=== PATIENT | male | born 1980 | race Caucasian/White ===

== ENCOUNTER 2018-05-01 10:18 | Inpatient (IN) ==
--- NOTE | 2018-05-01 10:39 | Emergency Department Note ---
Disposition Clinical Impression: Cellulitis of both lower extremities Disposition: Admitted As Inpatient Condition: Good Time of Disposition: 11:59 Extremity Problem HPI - General Chief complaint: ED Extremity Problem,Nontraumatic Stated complaint: Swollen legs Time Seen by Provider: 05/01/18 10:25 Source: patient Mode of arrival: ambulatory Limitations: no limitations Nursing Notes Reviewed: Yes Vital Signs Reviewed: Yes - History of Present Illness HPI Narrative: Patient is a 37-year-old male with past medical history of hypertension. He presents today due to concern for cellulitis of the lower extremities. Patient states that this is been going on for a few weeks. He noticed some redness and swelling that started first on the right lower showed a analysis on the left lower extremities well. He notes that they are hot, swollen, redness is slowly extending up his legs. He denies any known initial injuries or cuts of the lower extremities, denies ulcers, denies hx of diabetes.. Denies any history of any DVTs, has not had an ultrasound in the past. He said that he was on 2 rounds of Bactrim and did have improvement in his redness. However, the redness eventually came back. He saw his primary care physician within the past week and was on Keflex, finished this dose regimen about one week ago. He states that the redness is still worsening despite being on antibiotic. Denies any other fevers, nausea, vomiting, abdominal pain, chest pain, shortness of breath, dysuria, hematuria. He also notes induration and redness that has began under his lower abdomen/pannus. Pain Scale: 7 - Related Data Allergies Allergy/AdvReac Type Severity Reaction Status Date / Time Penicillins Allergy See Verified 09/01/16 16:01 Comments All systems ED: reviewed and negative except as stated. Constitutional: Denies: fever Cardiovascular: Denies: chest pain Respiratory: Denies: dyspnea Gastrointestinal: Denies: abdominal pain, nausea, vomiting, diarrhea Genitourinary: Denies: urgency, dysuria Integumentary: Reports: rash Neurological: Denies: headache, weakness, numbness, paresthesias Past Medical History - Past Medical History Attestation: Yes The following information was validated with the patient. Source: patient Medical history: Reports: GERD, hypertension, kidney stones Psychiatric history: Reports: anxiety, depression, prior suicide attempt - Social History Smoking Status: Current every day smoker Smokeless Tobacco Status: No Alcohol use: Reports: occasionally Drug use: Reports: cocaine, marijuana, prescription drug abuse, other Physical Exam - General Limitations: no limitations General appearance: alert, in no apparent distress - Head Head exam: atraumatic, normocephalic, normal inspection - Eye Eye exam: Present: normal appearance, PERRL, EOMI - ENT ENT exam: normal exam, normal oropharynx, mucous membranes moist - Neck Neck exam: Present: normal inspection, full ROM, trachea midline - Chest Chest inspection: Present: normal inspection, symmetric chest wall rise - Respiratory Respiratory exam: Present: normal lung sounds bilaterally - Cardiovascular Cardiovascular exam: Present: regular rate, normal rhythm, normal heart sounds - Abdominal Exam Abdominal exam: Present: other (induration of the lower abdomen with mild erythema). Absent: tenderness, distention, guarding, rebound, rigidity - Neurological Exam Neurological exam: Present: alert, oriented X3 - Psychiatric Psychiatric exam: Present: normal affect, normal mood Course Course Narrative: Patient is tachycardic. Otherwise, the rest of vitals within normal limits. Physical exam shows significant erythema of bilateral lower extremities and swelling of bilateral lower extremities, both worse on the right. Legs are both tender to palpation. Redness extends up to above bilateral knees. He also has some mild induration and mild erythema of the lower abdomen. Patient has been on 3 rounds of antibiotics within the past few weeks, recently finished Keflex 1 week ago. States that the redness is not improving. We will obtain CBC, BMP, will also give 1 L normal saline bolus, will give vanc and clinda for staph and strep coverage. Will also obtain US of bilateral LE to assess for DVT. 11:52 white blood cell count of 8.0. Otherwise, no other major concerning labs. DVT ultrasound of the bilateral lower extremities were negative. Bedside ultrasound performed and showed cobblestoning of bilateral lower extremities consistent with cellulitis. We will proceed with admission at this time but felt outpatient treatment of cellulitis of lower extremities. Vital Signs Temperature 98.0 F 05/01/18 10:20 Pulse Rate 110 05/01/18 10:20 Respiratory Rate 18 05/01/18 10:20 Blood Pressure 145/99 05/01/18 10:20 O2 Sat by Pulse Oximetry 98 05/01/18 10:20 Temperature 98.0 F 05/01/18 10:20 Pulse Rate 110 05/01/18 10:20 Respiratory Rate 18 05/01/18 10:20 Blood Pressure 145/99 05/01/18 10:20 O2 Sat by Pulse Oximetry 98 05/01/18 10:20 Oxygen Delivery Oxygen Delivery Room Air Extremity Problem, Nontraumati - [facility] Narrative Medical decision making narrative: Patient is tachycardic. Otherwise, the rest of vitals within normal limits. Physical exam shows significant erythema of bilateral lower extremities and swelling of bilateral lower extremities, both worse on the right. Legs are both tender to palpation. Redness extends up to above bilateral knees. He also has some mild induration and mild erythema of the lower abdomen. Patient has been on 3 rounds of antibiotics within the past few weeks, recently finished Keflex 1 week ago. States that the redness is not improving. We will obtain CBC, BMP, will also give 1 L normal saline bolus, will give vanc and clinda for staph and strep coverage. Will also obtain US of bilateral LE to assess for DVT. 11:52 white blood cell count of 8.0. Otherwise, no other major concerning labs. DVT ultrasound of the bilateral lower extremities were negative. Bedside ultrasound performed and showed cobblestoning of bilateral lower extremities consistent with cellulitis. We will proceed with admission at this time but felt outpatient treatment of cellulitis of lower extremities. - Medical Records Medical records reviewed: Yes I reviewed the patient's medical records. - Lab Data Lab results reviewed: Yes I reviewed the patient's lab results. Result diagrams: 05/01/18 10:56 05/01/18 10:41 Lab Results 05/01/18 05/01/18 Range/Units 10:41 10:56 WBC 8.0 (4.3-11.1) K/mcL RBC 4.54 (4.19-5.50) M/mcL Hgb 12.8 L (12.9-16.9) g/dL Hct 39.0 (37.5-50.1) % MCV 85.9 (83.0-100.0) fL MCH 28.2 (28.0-33.3) pg MCHC 32.8 (31.6-35.5) g/dL RDW 13.6 (11.5-14.5) % Plt Count 245 (140-400) K/mcL MPV 9.1 L (9.4-12.4) fL Immature Gran % 0.4 (0-4) % Seg Neutrophils % 67.9 % Lymphocytes % 14.6 % Monocytes % 12.5 % Eosinophils % 3.8 % Basophils % 0.8 % Neutrophils # 5.4 (1.6-8.9) K/mcL Lymphocytes # 1.2 (0.6-4.6) K/mcL Monocytes # 1.0 (0.0-1.3) K/mcL Eosinophils # 0.3 (0.0-0.6) K/mcL Basophils # 0.1 (0.0-0.2) K/mcL Sodium 138 (136-145) mEq/L Potassium 4.1 (3.5-5.1) mEq/L Chloride 105 (98-107) mEq/L Carbon Dioxide 28 (23-29) mEq/L BUN 14 (6-20) mg/dL Creatinine 0.65 L (0.70-1.30) mg/dL Est GFR ( Amer) > 60 (> 60) Est GFR (Non-Af Amer) > 60 (> 60) BUN/Creatinine Ratio 22 (6-26) Glucose 110 H (70-105) mg/dL Calculated Osmolality 287 (280-300) Calcium 8.8 (8.6-10.3) mg/dL - Radiology Data Radiology results reviewed: Yes I reviewed the patient's radiology results. S.B.A.R. - S.B.A.R. Situation: Demographics, MOA Background: Presenting Complaint, Relevant PMH, Meds, & Allergies Assessment: Vital Signs, Course and respsone to treatment, Exam Concerns, Patient/Family Expectation, Pertinant Lab Results Recommendation: Barrier(s) to disposition, Recommendation based on pending studi es, treatments, or consults S.B.A.R. Report Given to: Dr. Macdonald
[2018-05-01] MEDS ORDERED: 0.9 % Sodium Chloride 1,000 ML IVC ONE (10:41)
[2018-05-01] MEDS ORDERED: Clindamycin 600 MG/50 ML 600 MG/50 ML IV.SOLN IVPB ONE (10:59)
--- NOTE | 2018-05-01 11:01 | Emergency Department Note ---
Disposition Clinical Impression: Cellulitis of both lower extremities Disposition: Admitted As Inpatient Condition: Good General Adult HPI - General Chief complaint: ED Extremity Problem,Nontraumatic Stated complaint: Swollen legs Time Seen by Provider: 05/01/18 10:25 Source: patient Mode of arrival: ambulatory Limitations: no limitations Nursing Notes Reviewed: Yes Vital Signs Reviewed: Yes - History of Present Illness Pain Scale: 7 - Related Data Allergies Allergy/AdvReac Type Severity Reaction Status Date / Time Penicillins Allergy See Verified 09/01/16 16:01 Comments Constitutional: Denies: fever Cardiovascular: Denies: chest pain Respiratory: Denies: dyspnea Gastrointestinal: Denies: abdominal pain, nausea, vomiting, diarrhea Genitourinary: Denies: urgency, dysuria Integumentary: Reports: rash Neurological: Denies: headache, weakness, numbness, paresthesias Past Medical History - Past Medical History Medical history: Reports: GERD, hypertension, kidney stones Psychiatric history: Reports: anxiety, depression, prior suicide attempt - Social History Smoking Status: Current every day smoker Smokeless Tobacco Status: No Alcohol use: Reports: occasionally Drug use: Reports: cocaine, marijuana, prescription drug abuse, other Physical Exam - General Limitations: no limitations General appearance: alert, in no apparent distress Course Vital Signs Temperature 98.0 F 05/01/18 10:20 Pulse Rate 110 05/01/18 10:20 Respiratory Rate 18 05/01/18 10:20 Blood Pressure 145/99 05/01/18 10:20 O2 Sat by Pulse Oximetry 98 05/01/18 10:20 Temperature 98.4 F 05/01/18 12:34 Pulse Rate 73 05/01/18 12:34 Respiratory Rate 18 05/01/18 12:34 Blood Pressure 126/65 05/01/18 12:34 O2 Sat by Pulse Oximetry 98 05/01/18 12:34 Oxygen Delivery Oxygen Delivery Room Air Medical Decision Making - Lab Data Result diagrams: 05/01/18 10:56 05/01/18 10:41 Lab Results 05/01/18 05/01/18 05/01/18 Range/Units 10:41 10:56 12:26 WBC 8.0 (4.3-11.1) K/mcL RBC 4.54 (4.19-5.50) M/mcL Hgb 12.8 L (12.9-16.9) g/dL Hct 39.0 (37.5-50.1) % MCV 85.9 (83.0-100.0) fL MCH 28.2 (28.0-33.3) pg MCHC 32.8 (31.6-35.5) g/dL RDW 13.6 (11.5-14.5) % Plt Count 245 (140-400) K/mcL MPV 9.1 L (9.4-12.4) fL Immature Gran % 0.4 (0-4) % Seg Neutrophils % 67.9 % Lymphocytes % 14.6 % Monocytes % 12.5 % Eosinophils % 3.8 % Basophils % 0.8 % Neutrophils # 5.4 (1.6-8.9) K/mcL Lymphocytes # 1.2 (0.6-4.6) K/mcL Monocytes # 1.0 (0.0-1.3) K/mcL Eosinophils # 0.3 (0.0-0.6) K/mcL Basophils # 0.1 (0.0-0.2) K/mcL Sodium 138 (136-145) mEq/L Potassium 4.1 (3.5-5.1) mEq/L Chloride 105 (98-107) mEq/L Carbon Dioxide 28 (23-29) mEq/L BUN 14 (6-20) mg/dL Creatinine 0.65 L (0.70-1.30) mg/dL Est GFR ( Amer) > 60 (> 60) Est GFR (Non-Af Amer) > 60 (> 60) BUN/Creatinine Ratio 22 (6-26) Glucose 110 H (70-105) mg/dL Calculated Osmolality 287 (280-300) Lactic Acid 0.5 (0.5-2.2) mmol/L Calcium 8.8 (8.6-10.3) mg/dL Creatine Kinase 67 (30-223) Units/L Attestation Statement - Attestation Attestation: I examined this patient and my medical decision-making was reviewed with the Resident Physician. I agree with the documented findings, disposition and treatment plan as described except to the extent set forth below. Patient presents to the emergency department with a chief complaint of leg redness. Patient has had problems with his legs for the past 2 months. They are swollen and painful. Red. He has taken a course of antibiotic with no improvement. He denies numbness but states they are tingly. He denies any history of diabetes. He denies stepping on any objects or trauma to his feet. On examination he has symmetric erythema and edema to the lower extremities. They are warm to the touch. Plan. Basic labs. IV antibiotics as he has failed outpatient Bactrim and Keflex. Will rule out DVTs. Patient will be admitted for failed outpatient treatment. Negative for DVT. Admitted for IV antibiotic.
[2018-05-01 11:18] LABS: Basophils # 0.1 K/mcL (0.0-0.2); Basophils % 0.8 %; Eosinophils # 0.3 K/mcL (0.0-0.6); Eosinophils % 3.8 %; Hemoglobin 12.8 g/dL (12.9-16.9); Immature Granulocytes % 0.4 % (0-4); Lymphocytes # 1.2 K/mcL (0.6-4.6); Lymphocytes % 14.6 %; Mean Corpuscular HGB Conc 32.8 g/dL (31.6-35.5); Mean Corpuscular Hemoglobin 28.2 pg (28.0-33.3); Mean Corpuscular Volume 85.9 fL (83.0-100.0); Mean Platelet Volume 9.1 fL (9.4-12.4); Monocytes % 12.5 %; Neutrophils # 5.4 K/mcL (1.6-8.9); Platelet Count 245 K/mcL (140-400); Red Blood Count 4.54 M/mcL (4.19-5.50); Red Cell Distribution Width 13.6 % (11.5-14.5); Segmented Neutrophils % 67.9 %
[2018-05-01 11:31] LABS: BUN/Creatinine Ratio 22 (6-26); Blood Urea Nitrogen 14 mg/dL (6-20); Calcium 8.8 mg/dL (8.6-10.3); Carbon Dioxide 28 mEq/L (23-29); Chloride 105 mEq/L (98-107); Glucose 110 mg/dL (70-105); Osmolality,Calculated 287 (280-300); Potassium 4.1 mEq/L (3.5-5.1); Sodium 138 mEq/L (136-145); eGFR For Non-African Americans > 60 (> 60)
--- NOTE | 2018-05-01 12:28 | Internal Med History&Physical ---
Date of Encounter: 05/01/18 Time of Encounter: 12:23 Internal Medicine - H&P: HPI Chief complaint: bilateral lower extremity swelling Admitted From: Home Plans for Post Hospital Care: Home History of present illness: Mr. Teresa is a 37 year old morbidly obese male with history of hypertension, depression and drug use disorder presented to the emergency department with complaint of bilateral lower extremity swelling and pain. As per patient his symptoms started 2 months ago with warmness and erythema and progressively it worsened and traveled up to his knees. In addition to warmness and erythema he developed worsening swelling of the bilateral lower extremities. He visited his primary care doctor and was prescribed Bactrim with minimal improvement of his symptoms. Last week he saw his primary care physician again and was prescribed Keflex and finish the course about 1 week ago however the symptoms continue to worsen. He cannot recall aggravating factors. He is frustrated as his legs are not improving despite being prescribed oral antibiotics. He reports that he has never had any history of DVTs or PE. He denies fever, chills, nausea, vomiting, diarrhea, applications, chest pain, shortness of breath, abdominal pian, N/V/D. Past Med Surg Social Fam HX - Past Medical History Medical history: GERD, hypertension, kidney stones Psychiatric history: anxiety, depression, prior suicide attempt - Past Surgical History Additional surgical history: Lithotripsy - Social History Smoking Status: Current every day smoker Smokeless Tobacco Status: No Alcohol use: occasionally Drug use: cocaine, marijuana, prescription drug abuse, other Internal Medicine - H&P: Meds Allergy/AdvReac Type Severity Reaction Status Date / Time Penicillins Allergy See Verified 09/01/16 16:01 Comments All Systems PM: A 10-system review of systems was performed and is negative for pertinent f indings except as documented above in the HPI. - Constitutional Vitals: Temp Pulse Resp BP Pulse Ox 98.0 F 110 18 145/99 98 05/01/18 10:20 05/01/18 10:20 05/01/18 10:20 05/01/18 10:20 05/01/18 10:20 Exam: General: Patient is alert, oriented, no acute distress, morbidly obese, eating Head: atraumatic, normocephalic, Eye: normal appearance, PERRL, no scleral icterus, no conjunctival injection ENT: mucous membranes moist, normal external ear exam Neck: normal inspection, trachea midline, full ROM, no carotid bruits Chest: normal inspection, symmetric chest rise Respiratory: Decreased breath sounds secondary to body habitus, Good respiratory effort. Bilateral breath sounds are clear without wheezing, crackles, or rhonchi. Cardiovascular: Distant heart sounds secondary to body habitus, Regular rate and rhythm. s1 and s2 No clicks, rubs, gallops, or murmors. Abdomen: Bowel sounds present normoactive x-4 quadrants. Abdomen is soft, nondistended. no Epigastric tenderness. No guarding or rebound. No o rganomegaly noted, obese musculoskeletal: Spontaneously moving all extremities. +3 edema of bilateral lower extremities below knee, erythema, warmth and weeping. Doppler pulses are intact, tender to touch Skin: warm, as above, bilateral feet have chronic skin changes Neuro: Alert and oriented x4. No focal deficit, Psych: Patient's affect is normal Internal Med - H&P Results - Labs CBC & Chem 7: 05/01/18 10:56 05/01/18 10:41 Labs: Short CBC 05/01/18 Range/Units 10:56 WBC 8.0 (4.3-11.1) K/mcL Hgb 12.8 L (12.9-16.9) g/dL Hct 39.0 (37.5-50.1) % Plt Count 245 (140-400) K/mcL Neutrophils # 5.4 (1.6-8.9) K/mcL BMP 05/01/18 10:41 Sodium 138 Potassium 4.1 Chloride 105 Carbon Dioxide 28 BUN 14 Creatinine 0.65 L Glucose 110 H Calcium 8.8 - Assessment and plan (1) Cellulitis of both lower extremities Current Visit: Yes Status: Acute Assessment and plan: bilateral lower extremity cellulitis up to the knee - failed OP treatment x 3 received vancomycin and clindamycin in the ED. CPK, lactic acid, ESR/CRP STAT continue with ceftriaxone, vancomycin ID consulted will follow recommendations CT of the bilateral lower extremities DVT study performed - as per ED physician it was negative - follow official report A1c in AM MRSA swab (2) Morbidly obese Current Visit: Yes Status: Acute Assessment and plan: BMI 48 nutrition consult (3) Depression Current Visit: Yes Status: Acute Assessment and plan: history of depression - continue home medications if not CI Qualifiers: Depression Type: unspecified Qualified Code(s): F32.9 - Major depressive disorder, single episode, unspecified (4) Current every day smoker Current Visit: Yes Status: Acute Assessment and plan: was counseled nicotine patch (5) Drug use disorder Current Visit: Yes Status: Acute Assessment and plan: Utox stat was counseled (6) DVT prophylaxis Current Visit: Yes Status: Acute Assessment and plan: heparin sc - Time Spent With Patient Total time spent is greater than 50% in coordination of care (as documented) at patient's floor/unit and/or counseling patient:
[2018-05-01 12:34] LABS: Creatine Kinase 67 Units/L (30-223)
[2018-05-01] MEDS ORDERED: Naloxone 0.4 MG/ML INJ IVP PRN (12:41)
[2018-05-01] MEDS ORDERED: Acetaminophen 325 MG TABLET PO PRN (12:41)
[2018-05-01 13:33] LABS: C-Reactive Protein 20 mg/L (Less than 10)
--- NOTE | 2018-05-01 13:35 | Infectious Disease Consult ---
Date of Encounter: 05/01/18 Time of Encounter: 13:28 Assessment and Plan (1) Cellulitis of both lower extremities Status: Acute Assessment and plan: Causative organism not clear. CT bilateral lower extremity prelim with no abscess or necrotizing fasciitis. Final report pending Patient allergic to penicillin states he has a rash when he was a baby Continue vancomycin and ceftriaxone for now Await blood cultures Await CT report Duration of treatment depends on clinical picture Goal vancomycin trough 10-15 Monitor left ventricular drug toxicity (2) Current every day smoker Status: Acute Assessment and plan: Patient smokes one pack a day Recommended nicotine patch (3) Depression Status: Acute Qualifiers: Depression Type: unspecified Qualified Code(s): F32.9 - Major depressive disorder, single episode, unspecified Infectious Disease HPI - Data of Consult Patient: new to practice Consult date: 05/01/18 Requesting Physician: Renae Adames MD Primary Care Provider: Cheli Maradiaga MD - Consult Narrative Reason for consult: cellulitis History of present illness: Mr. Teresa is a 37 year old male Patient is a 37-year-old gentleman who just presented to [facility] with bilateral lower extremity edema and erythema. We are consulted for cellulitis requiring IV antibiotics failed outpatient treatment. Patient is a 37-year-old gentleman who has intermittent hypertension currently not taking any medications. Who also has morbid obesity with a BMI of 49 who also has chronic pain syndrome and anxiety presented to see his PCP at the end of March for cellulitis. Patient was given Keflex 500 mg every 6 hours with no resolution or improvement of his symptoms. Patient tells me after that he took 2 courses of Bactrim which also did not improve his symptoms. Patient decided to come to the hospital for evaluation. Patient states that he felt that he was having fevers and chills. Patient states that his swelling on his legs has been going on for a few months that the erythema has been going on for a couple weeks. I think the patient is a poor historian because it does not coincide with the records we have from 03/31/2018. Since admission, patient has been afebrile, tachycardic. No tachypnea. Presenting labs revealed a WBC of 8000 with normal differential. BUN 14 creatinine 0.65. CK 67 and a CRP that is pending. Patient had bilateral lower extremity CT to rule out DVT or abscesses or necrotizing fasciitis. Official report is pending. On further questioning patient lives with his fiancee and his children. Patient has a total of 3 biological and 3 stepchildren. Patient also has 2 dogs at home. Patient tells me that he is self-employed. Lives in [place]. Patient does smoke a pack a day. Smokes pot every day. Does not drink alcohol. Patient denies any from a to his lower extremities. Denies any insect bite. De nies any bedbugs. Currently patient is sitting up at the edge of the bed. Denies any headache. No runny nose no sinus pressure no sore throat. No chest pain or shortness of breath. No nausea no vomiting no diarrhea no constipation no urinary symptoms. Patient does have bilateral lower extremity edema and erythema and warmth to touch suggestive of cellulitis. Patient also has very dry scaly skin on both sides that he states he has had for years. Poor hygiene might be playing a factor CC: Renae Adames MD Past Med Surg Social Fam HX - Past Medical History Medical history: GERD, hypertension, kidney stones Psychiatric history: anxiety, depression, prior suicide attempt - Past Surgical History Additional surgical history: Lithotripsy - Social History Smoking Status: Current every day smoker Smokeless Tobacco Status: No Alcohol use: occasionally Drug use: cocaine, marijuana, prescription drug abuse, other - Family History Father Hx Family Cardiac Disorders: Yes Mother Hx Family Cardiac Disorders: Yes Infectious Disease-CN:Meds Ranitidine HCl [Heartburn Relief] 150 mg PO BID 05/01/18 [History] Allergy/AdvReac Type Severity Reaction Status Date / Time Penicillins Allergy See Verified 05/02/18 09:38 Comments Review of systems: 10 point review of systems done, pertinent positives and negatives are mentioned in the history of present illness Exam - Constitutional Vitals: Temp Pulse Resp BP Pulse Ox 98.4 F 73 18 126/65 98 05/01/18 12:34 05/01/18 12:34 05/01/18 12:34 05/01/18 12:34 05/01/18 12:34 General appearance: cooperative, no febrile - Head Head exam: Present: atraumatic, normocephalic - Eye Eye exam: Present: EOMI, PERRL, sclera anicteric - ENT ENT exam: Present: mucous membranes moist Additional comments: No oral thrush - Neck Neck exam: Present: full ROM. Absent: meningismus - Respiratory Respiratory exam: Present: CTAB. Absent: wheezes - Cardiovascular Cardiovascular exam: Present: RRR, +S1, +S2 - GI/Abdominal GI/Abdominal exam: Present: normal bowel sounds, soft. Absent: tenderness - Extremities Exam Additional comments: Bilateral lower extremity edema, erythema and warmth to touch. No crepitus. No fluctuance. Patient does have scaly skin on the heels of both feet that he tells me he has had for a while - Neurological Exam Neurological exam: Present: alert, oriented X3 Infectious Disease CN: Results - Labs CBC & Chem 7: 05/02/18 03:10 05/02/18 03:10 Consult Discharge Plan - Plan Referrals: Cheli Maradiaga MD [Primary Care Provider] -
[2018-05-01] MEDS: *HR* HYDROcodone/Acet 5/325 mg TABLET PO PRN ×2 (13:40→20:38)
[2018-05-01] MEDS: cefTRIAXone 2,000 MG in Water for inj. (sterile) 20 ML 20 ML IVP SCH (16:15)
[2018-05-01] MEDS: *HR* Heparin 5,000 UNIT/ML VIAL SQ SCH ×2 (16:16→22:21)
[2018-05-01] MEDS: Famotidine 20 MG TABLET PO SCH (20:38)
[2018-05-01 22:06] LABS: Amphetamine Screen,Urine Negative ng/mL (Cutoff=1000); Barbiturate Screen,Urine Negative ng/mL (Cutoff=200); Benzodiazepines Screen,Urine Negative ng/mL (Cutoff=200); Cannabinoid Screen,Urine Positive ng/mL (Cutoff = 50); Cocaine Screen,Urine Positive ng/mL (Cutoff= 300); Opiate Screen,Urine Positive ng/mL (Cutoff=300); Phencyclidine Screen,Urine Negative ng/mL (Cutoff=25)
[2018-05-02 03:39] LABS: Basophils % 1.3 %; Eosinophils % 5.4 %; Hematocrit 38.8 % (37.5-50.1); Hemoglobin 12.4 g/dL (12.9-16.9); Immature Granulocytes % 0.6 % (0-4); Lymphocytes % 19.5 %; Mean Corpuscular Hemoglobin 27.7 pg (28.0-33.3); Mean Corpuscular Volume 86.6 fL (83.0-100.0); Mean Platelet Volume 9.1 fL (9.4-12.4); Monocytes % 11.8 %; Platelet Count 235 K/mcL (140-400); Red Blood Count 4.48 M/mcL (4.19-5.50); Red Cell Distribution Width 13.5 % (11.5-14.5); Segmented Neutrophils % 61.4 %
[2018-05-02 03:40] LABS: Basophils # 0.1 K/mcL (0.0-0.2); Eosinophils # 0.3 K/mcL (0.0-0.6); Lymphocytes # 1.2 K/mcL (0.6-4.6); Monocytes # 0.8 K/mcL (0.0-1.3); Neutrophils # 3.9 K/mcL (1.6-8.9)
[2018-05-02 03:58] LABS: BUN/Creatinine Ratio 17 (6-26); Blood Urea Nitrogen 13 mg/dL (6-20); Calcium 8.5 mg/dL (8.6-10.3); Carbon Dioxide 28 mEq/L (23-29); Chloride 108 mEq/L (98-107); Glucose 119 mg/dL (70-105); Osmolality,Calculated 283 (280-300); Potassium 4.1 mEq/L (3.5-5.1); Sodium 136 mEq/L (136-145); eGFR For Non-African Americans > 60 (> 60)
[2018-05-02 04:11] LABS: Thyroid Stimulating Hormone 1.419 mcIU/mL (0.340-5.600)
[2018-05-02 04:21] LABS: Estimated Average Glucose 126 mg/dl
[2018-05-02] MEDS: *HR* Heparin 5,000 UNIT/ML VIAL SQ SCH ×3 (05:14→21:23)
[2018-05-02] MEDS: *HR* HYDROcodone/Acet 5/325 mg TABLET PO PRN ×3 (05:14→19:48)
--- NOTE | 2018-05-02 07:57 | Internal Med Progress Note ---
Hospitalist Progress Note - Encounter Date of Encounter: 05/02/18 Time of Encounter: 07:54 - Subjective Interval History: Patient seen and examined this morning at bedside. No acute overnight events. Denies any fevers chills nausea and vomiting. Feeling slightly better. Pain slightly improved in his lower extremity. Denies any shortness of breath or chest pain. No bowel or urinary complaints. - Exam Vitals: Temp Pulse Resp BP Pulse Ox 98.0 F 82 16 137/80 100 05/02/18 03:05 05/02/18 03:05 05/02/18 03:05 05/02/18 03:05 05/02/18 03:05 Exam: General: In no acute distress. Conversant. Morbidly Obese. Respiratory exam: CTAB. no accessory muscle use, rales, rhonchi, wheezes Cardiovascular exam: RRR, +S1, +S2. no murmur, gallop, rubs. GI/Abdominal exam: Non-tender, Non-distended, normal bowel sounds, soft, no peritoneal signs. Extremities exam: full ROM, 3+ pedal edema. no calf tenderness Neurological exam: CN II-XII intact, AO X3, no focal deficits. no pronater dri ft, facial droop, speech deficit Skin exam: redness and warmth b/l LE below knee. could not inspect whole leg due to tight pants. Tenderess on Lt medial maleolus. - Assessment and Plan (1) Cellulitis of both lower extremities Current Visit: Yes Status: Acute (2) Morbidly obese Current Visit: Yes Status: Acute (3) DVT prophylaxis Current Visit: Yes Status: Acute (4) Depression Current Visit: Yes Status: Acute (5) Current every day smoker Current Visit: Yes Status: Acute (6) Drug use disorder Current Visit: Yes Status: Acute - Summary of Assessment and Plan Summary of Assessment and Plan: Cellulitis of both lower extremities - ongoing for 3-4 weeks - failed outpatient keflex and bactrim over past 3 weeks - elevated CRP and ESR - No bone involvement on CT - DVT study negative. follow official report - borderline A1c, MRSA negative - c/w Vancomycin and ceftriaxone. f/u Blood culture - ID following Chronic LE swelling - Not worked up before. On going for few months - Obtain ECHO given cocaine use for cardiomyopathy. Depression - Will start home medication when confirmed Current every day smoker and cocaine/marijuana abuse - c/w nicotine patch. Counselled on smoking cessation and drug abuse - last coccaine use 1 week ago. Opiate positive but denies use or use of pain medications - mentions not ready and does not want to see social insurance analyst DVT prophylaxis - heparin sc - Time Spent with Patient Total time spent is greater than 50% in coordination of care (as documented) at patient's floor/unit and/or counseling patient: Internal Medicine: Result - Labs CBC & Chem 7: 05/02/18 03:10 05/02/18 03:10 Labs: Short CBC 05/01/18 05/02/18 Range/Units 10:56 03:10 WBC 8.0 6.4 (4.3-11.1) K/mcL Hgb 12.8 L 12.4 L (12.9-16.9) g/dL Hct 39.0 38.8 (37.5-50.1) % Plt Count 245 235 (140-400) K/mcL Neutrophils # 5.4 3.9 (1.6-8.9) K/mcL BMP 05/01/18 05/02/18 10:41 03:10 Sodium 138 136 Potassium 4.1 4.1 Chloride 105 108 H Carbon Dioxide 28 28 BUN 14 13 Creatinine 0.65 L 0.77 Glucose 110 H 119 H Calcium 8.8 8.5 L - Impressions Impressions Lower Extremity CT 05/01/18 12:18 IMPRESSION: CT tibia/fibula: 1. Severe cellulitis of the left lower extremity. 2. No acute osseous abnormality or aggressive osseous destruction. 3. No focus of soft tissue gas identified. CT right lower extremity: 1. Severe cellulitis of the right lower extremity. 2. No acute osseous abnormality or aggressive osseous destruction. 3. No focus of soft tissue gas identified. D/ / 05/01/2018 13:52:40 Adonay Cedeno MD / jason Interpreting Provider: Adonay Cedeno MD Lower Extremity CT 05/01/18 12:18 IMPRESSION: CT tibia/fibula: 1. Severe cellulitis of the left lower extremity. 2. No acute osseous abnormality or aggressive osseous destruction. 3. No focus of soft tissue gas identified. CT right lower extremity: 1. Severe cellulitis of the right lower extremity. 2. No acute osseous abnormality or aggressive osseous destruction. 3. No focus of soft tissue gas identified. D/ / 05/01/2018 13:52:40 Adonay Cedeno MD / jason Interpreting Provider: Adonay Cedeno MD Consult Discharge Plan - Plan Referrals: Cheli Maradiaga MD [Primary Care Provider] - (4) Depression Qualifiers: Depression Type: unspecified Qualified Code(s): F32.9 - Major depressive disorder, single episode, unspecified
[2018-05-02] MEDS: Famotidine 20 MG TABLET PO SCH ×2 (08:33→19:48)
--- NOTE | 2018-05-02 09:20 | Infectious Disease Progress No ---
Date of Encounter: 05/02/18 Time of Encounter: 09:18 - Assessment and Plan (1) Cellulitis of both lower extremities Status: Acute Causative organism: Unclear. Location: Both lower extremities. Etiology: Unclear this is likely multifactorial. The patient has poor skin turgor to the bilateral lower extremities and there appears to be some dry scaly skin making him at high risk for skin compromise which could be the source. The patient is also morbidly obese and possibly has an element of vasculature abnormalities contributing to the swelling. CT of the BLE negative for abscess or OM. ESR and CRP mildly elevated, but not impressive. Recommendations: Aait blood cultures. Continue Vancomycin IV. Pharmacy to dose. Goal trough ~15. Continue Rocephin 2 grams IV daily. Duration of treatment depends on the clinical picture. Monitor renal function and for drug toxicity and dose-adjust antibiotics. (2) Morbidly obese Status: Acute (3) Depression Status: Acute Qualifiers: Depression Type: unspecified Qualified Code(s): F32.9 - Major depressive disorder, single episode, unspecified (4) Current every day smoker Status: Acute (5) Drug use disorder Status: Acute UDS positive for opiates, cocaine, and THC. Consider checking HIV and Hepatitis B and C serologies. - Subjective Interval history: Patient seen and examined. No acute events noted overnight. Patient states overall he feels about the same. Complains of some pain to the bilateral ankles. Denies any fevers or chills or rigors. Denies chest pain, shortness of breath, or cough. Denies nausea, vomiting, diarrhea, or constipation. Denies abdominal pain or urinary complaints. States his appetite is good and he had a bowel movement yesterday. He denies any oral thrush or new skin lesions. Infect Dis PN-Objective Data - Labs CBC & Chem 7: 05/02/18 03:10 05/03/18 02:36 Labs: Laboratory Results - last 24 hr 05/01/18 05/01/18 05/01/18 10:41 10:56 10:56 WBC 8.0 RBC 4.54 Hgb 12.8 L Hct 39.0 MCV 85.9 MCH 28.2 MCHC 32.8 RDW 13.6 Plt Count 245 MPV 9.1 L Immature Gran % 0.4 Seg Neutrophils % 67.9 Lymphocytes % 14.6 Monocytes % 12.5 Eosinophils % 3.8 Basophils % 0.8 Neutrophils # 5.4 Lymphocytes # 1.2 Monocytes # 1.0 Eosinophils # 0.3 Basophils # 0.1 ESR 43 H Sodium 138 Potassium 4.1 Chloride 105 Carbon Dioxide 28 BUN 14 Creatinine 0.65 L Est GFR ( Amer) > 60 Est GFR (Non-Af Amer) > 60 BUN/Creatinine Ratio 22 Glucose 110 H Est Mean Plasma Glucose Hemoglobin A1c Calculated Osmolality 287 Lactic Acid Calcium 8.8 Creatine Kinase 67 C-Reactive Protein 20 H TSH Nasal Screen MRSA (PCR) Urine Opiates Screen Ur Barbiturates Screen Ur Phencyclidine Scrn Ur Amphetamines Screen U Benzodiazepines Scrn Urine Cocaine Screen U Marijuana (THC) Screen Ur Drug Screen Interp 05/01/18 05/01/18 05/01/18 12:26 16:31 21:30 WBC RBC Hgb Hct MCV MCH MCHC RDW Plt Count MPV Immature Gran % Seg Neutrophils % Lymphocytes % Monocytes % Eosinophils % Basophils % Neutrophils # Lymphocytes # Monocytes # Eosinophils # Basophils # ESR Sodium Potassium Chloride Carbon Dioxide BUN Creatinine Est GFR ( Amer) Est GFR (Non-Af Amer) BUN/Creatinine Ratio Glucose Est Mean Plasma Glucose Hemoglobin A1c Calculated Osmolality Lactic Acid 0.5 Calcium Creatine Kinase C-Reactive Protein TSH Nasal Screen MRSA (PCR) Negative Urine Opiates Screen Positive H Ur Barbiturates Screen Negative Ur Phencyclidine Scrn Negative Ur Amphetamines Screen Negative U Benzodiazepines Scrn Negative Urine Cocaine Screen Positive H U Marijuana (THC) Screen Positive H Ur Drug Screen Interp See Below 05/02/18 05/02/18 05/02/18 03:10 03:10 03:10 WBC 6.4 RBC 4.48 Hgb 12.4 L Hct 38.8 MCV 86.6 MCH 27.7 L MCHC 32.0 RDW 13.5 Plt Count 235 MPV 9.1 L Immature Gran % 0.6 Seg Neutrophils % 61.4 Lymphocytes % 19.5 Monocytes % 11.8 Eosinophils % 5.4 Basophils % 1.3 Neutrophils # 3.9 Lymphocytes # 1.2 Monocytes # 0.8 Eosinophils # 0.3 Basophils # 0.1 ESR Sodium 136 Potassium 4.1 Chloride 108 H Carbon Dioxide 28 BUN 13 Creatinine 0.77 Est GFR ( Amer) > 60 Est GFR (Non-Af Amer) > 60 BUN/Creatinine Ratio 17 Glucose 119 H Est Mean Plasma Glucose 126 Hemoglobin A1c 6.0 H Calculated Osmolality 283 Lactic Acid Calcium 8.5 L Creatine Kinase C-Reactive Protein TSH 1.419 Nasal Screen MRSA (PCR) Urine Opiates Screen Ur Barbiturates Screen Ur Phencyclidine Scrn Ur Amphetamines Screen U Benzodiazepines Scrn Urine Cocaine Screen U Marijuana (THC) Screen Ur Drug Screen Interp Cultures: Cultures 05/01/18 12:26 Blood Culture - Preliminary Peripheral Venipuncture Culture is incubating and being continuously monitored for growth. Final report to follow. Serology 05/01/18 Range/Units 16:31 Nasal Screen MRSA (PCR) Negative (Negative) - Impressions Impressions Lower Extremity CT 05/01/18 12:18 IMPRESSION: CT tibia/fibula: 1. Severe cellulitis of the left lower extremity. 2. No acute osseous abnormality or aggressive osseous destruction. 3. No focus of soft tissue gas identified. CT right lower extremity: 1. Severe cellulitis of the right lower extremity. 2. No acute osseous abnormality or aggressive osseous destruction. 3. No focus of soft tissue gas identified. D/ / 05/01/2018 13:52:40 Adonay Cedeno MD / jason Interpreting Provider: Adonay Cedeno MD Lower Extremity CT 05/01/18 12:18 IMPRESSION: CT tibia/fibula: 1. Severe cellulitis of the left lower extremity. 2. No acute osseous abnormality or aggressive osseous destruction. 3. No focus of soft tissue gas identified. CT right lower extremity: 1. Severe cellulitis of the right lower extremity. 2. No acute osseous abnormality or aggressive osseous destruction. 3. No focus of soft tissue gas identified. D/ / 05/01/2018 13:52:40 Adonay Cedeno MD / jason Interpreting Provider: Adonay Cedeno MD Exam - Constitutional Vitals: Temp Pulse Resp BP Pulse Ox 98.4 F 86 18 135/86 97 05/02/18 07:40 05/02/18 07:40 05/02/18 07:40 05/02/18 07:40 05/02/18 07:40 General appearance: cooperative, morbidly obese, no acute distress - Head Head exam: Present: atraumatic, normal inspection, normocephalic - Eye Eye exam: Present: EOMI, normal appearance, PERRL Pupils: Present: normal accommodation - ENT ENT exam: Present: mucous membranes moist - Neck Neck exam: Present: normal inspection - Respiratory Respiratory exam: Present: CTAB. Absent: rales, respiratory distress, rhonchi, wheezes - Cardiovascular Cardiovascular exam: Present: RRR, +S1, +S2 - GI/Abdominal GI/Abdominal exam: Present: distended (Obese), normal bowel sounds, soft. Absent: tenderness - Extremities Exam Extremities exam: Present: pedal edema (2+ bilateral lower extremities), ten derness (Bilateral lower extremities). Absent: joint swelling, normal inspection (Erythema and warmth and tenderness noted to the bilateral lower extremities.) - Neurological Exam Neurological exam: Present: alert, oriented X3, no focal deficits - Psychiatric Psychiatric exam: Present: normal affect, normal mood - Skin Skin exam: Present: dry, intact, normal color, warm Consult Discharge Plan - Plan Additional Instructions: Go to nearest emergency room for any new or worsening symptoms. Take all medications as prescribed. Finish entire antibiotic prescription. PCP web requested. Referrals: Cheli Maradiaga MD [Primary Care Provider] - Prescriptions: cephALEXin [Keflex] 500 mg PO BID 7 Days #14 capsule Sulfamethoxazole/Trimeth DS [Bactrim DS] 1 each PO BID 10 Days #20 tablet - Attending Attestation I have personally performed a face to face evaluation on this patient. I have reviewed and agree with the care plan. History and Exam by me shows: cellulitis improved clinically doing better continue vancomycin and rocephin for now on d/c consider doxy+keflex for 14 days foot hygiene
[2018-05-02] MEDS ORDERED: Aminoglycoside Consult 1 EACH MC ONE (11:01)
[2018-05-02] MEDS: cefTRIAXone 2,000 MG in Water for inj. (sterile) 20 ML 20 ML IVP SCH (13:08)
[2018-05-02] MEDS: Nicotine 21 MG PATCH.TD24 TD SCH (19:48)
[2018-05-03 03:21] LABS: BUN/Creatinine Ratio 19 (6-26); Blood Urea Nitrogen 13 mg/dL (6-20); Calcium 8.4 mg/dL (8.6-10.3); Carbon Dioxide 29 mEq/L (23-29); Chloride 105 mEq/L (98-107); Glucose 122 mg/dL (70-105); Osmolality,Calculated 287 (280-300); Sodium 138 mEq/L (136-145); eGFR For Non-African Americans > 60 (> 60)
[2018-05-03] MEDS: *HR* Heparin 5,000 UNIT/ML VIAL SQ SCH (05:15)
[2018-05-03 07:02] VITALS: BP 137/88
[2018-05-03] MEDS: Nicotine 21 MG PATCH.TD24 TD SCH (08:26)
[2018-05-03] MEDS: Famotidine 20 MG TABLET PO SCH (08:26)
[2018-05-03] MEDS: *HR* HYDROcodone/Acet 5/325 mg TABLET PO PRN (08:26)
--- NOTE | 2018-05-03 12:35 | Discharge Summary ---
- NOTES TO OUTPATIENT PROVIDER Notes to Outpatient Provider: Patient left AMA. Was prescribed Bactrim as he could not afford linezolid along with Keflex. We will need to follow up within 2-3 days with ID. Orders not resulted at time of discharge: Pending orders 05/01/18 12:26 Culture,Blood [BC] Stat Date of Encounter: 05/03/18 Time of Encounter: 09:23 - Discharge Diagnosis (1) Cellulitis of both lower extremities Priority: Primary Status: Acute (2) Morbidly obese Priority: Secondary Status: Acute (3) DVT prophylaxis Priority: Secondary Status: Acute (4) Depression Priority: Secondary Status: Acute Qualifiers: Depression Type: unspecified Qualified Code(s): F32.9 - Major depressive disorder, single episode, unspecified (5) Current every day smoker Priority: Secondary Status: Acute (6) Drug use disorder Priority: Secondary Status: Acute Hospital course: Mr. Teresa is a 37 year old male past medical history of hypertension, kidney stone, anxiety, depression, drug abuse came in with complain of left lower extremity swelling and pain and redness. Patient was found to have cellulitis of bilateral lower extremity. CT scan did not show any bony involvement. Infectious disease was consulted. Patient was started on vancomycin and ceftriaxone. Patient improved over the course of 2 days. Urine tox getting positive for opiates, cocaine. Echocardiogram was obtained given drug abuse and lower extremity swelling which showed intermediate diastolic function with EF of 55-60%. DVT studies were negative. Patient adamant to leave today. Cultures has not reported back yet. Discussed not medically safe to leave AMA. Prescribed linezolid and Keflex given previous failure to Bactrim for MRSA coverage however patient could not afford it. Patient was given Bactrim and Keflex however discuss it would be suboptimal and may again need to failure of treatment. Discussed threats to life and limb which patient understands and wants to go. - Time Spent with Patient Total time spent providing and/or coordinating discharge services: Greater than 30 minutes (38) - Discharge Medications Prescriptions: New cephALEXin [Keflex] 500 mg PO BID 7 Days #14 capsule Sulfamethoxazole/Trimeth DS [Bactrim DS] 1 each PO BID 10 Days #20 tablet Continue Ranitidine HCl [Heartburn Relief] 150 mg PO BID Home Medications: Ranitidine HCl [Heartburn Relief] 150 mg PO BID 05/01/18 [History] Sulfamethoxazole/Trimeth DS [Bactrim DS] 1 each PO BID 10 Days #20 tablet 05/03/18 [Rx] cephALEXin [Keflex] 500 mg PO BID 7 Days #14 capsule 05/03/18 [Rx] Allergies/Adverse Reactions: Allergy/AdvReac Type Severity Reaction Status Date / Time Penicillins Allergy See Verified 05/02/18 09:38 Comments Date of admission: 05/02/18 10:37 Primary care physician: Cheli Maradiaga MD Consults: 05/01/18 12:44 Consult to Infectious Diseases [CONS] Routine Consulting Provider: [facility] [place] Reason for Consult: cellulitis Call Completed: Yes Discharging clinician: Jose Ortega - Constitutional Vitals: Temp Pulse Resp BP Pulse Ox 98.1 F 86 14 137/88 95 05/03/18 07:02 05/03/18 07:02 05/03/18 07:02 05/03/18 07:02 05/03/18 07:02 Exam: General: In no acute distress.anxious Respiratory exam: CTAB. no accessory muscle use, rales, rhonchi, wheezes Cardiovascular exam: RRR, +S1, +S2. no murmur, gallop, rubs. GI/Abdominal exam: Non-tender, Non-distended, normal bowel sounds, soft, no peritoneal signs. Extremities exam: 3+ pedal edema. no calf tenderness Neurological exam: CN II-XII intact, AO X3, no focal deficits. Skin exam: redness and warmth b/l LE below knee. slighly improved. No tenderness - Patient Status Disposition: Left Against Medical Advice Condition: Good - Discharge Instructions Follow Up With: Cheli Maradiaga MD [Primary Care Provider] - Additional Instructions: Go to nearest emergency room for any new or worsening symptoms. Take all medications as prescribed. Finish entire antibiotic prescription. PCP web requested.
== END 2018-05-03 11:02 | disposition left against medical advice (07) | DRG 603 ==
LOC: EMEROOARM 10:18 → 3NENU 10:18 → SUATTDRO 12:32 → 3NENU 13:03
PROVIDERS: ADMIT Internal Medicine; ATTEND Internal Medicine